=== PATIENT | female | born 1930 | race Caucasian/White ===

== ENCOUNTER → 2017-01-23 | Outpatient (CLI) | payer MEDICARE ==
--- NOTE | 2017-01-24 09:28 | ECHOF ---
Referral Reason:R06.02 Shortness of breath MEASUREMENTS -------- HEIGHT: 170.2 cm WEIGHT: 49.9 kg BP: RVIDd: 2.2 cm (< 3.3) IVSd: 1.3 cm (0.6 - 1.1) LVIDd: 4.0 cm (3.9 - 5.3) LVPWd: 1.3 cm (0.6 - 1.1) EDV(Teich): 70 ml IVSs: 1.4 cm LVIDs: 3.6 cm LVPWs: 1.4 cm %IVS Thck: 4 % ESV(Teich): 53 ml EF(Teich): 24 % %FS: 11 % SV(Teich): 17 ml LALs A4C: 5.3 cm LAAs A4C: 20.0 cm LAESV A-L A4C: 64 ml LAESV MOD A4C: 57 ml LALs A2C: 6.1 cm LAAs A2C: 18.7 cm LAESV A-L A2C: 48 ml LAESV MOD A2C: 46 ml LAESV(A-L): 59 ml LAESV Index (A-L): 37.85 ml/m Ao Diam: 3.0 cm (2.0 - 3.7) AV Cusp: 1.6 cm (1.5 - 2.6) LA Diam: 4.2 cm (2.7 - 3.8) MV EXCURSION: 18.330 mm (> 18.000) MV EF SLOPE: 142 mm/s (70 - 150) EPSS: 1.0 cm MV E Daryn: 0.66 m/s MV DecT: 203 ms MV Dec [place]: 3.3 m/s MV A Daryn: 0.29 m/s MV E/A Ratio: 2.27 MV PHT: 59 ms E/E': 3.18 E': 0.21 m/s AV Vmax: 1.18 m/s AV maxP.61 mmHg TR Vmax: 2.24 m/s TR maxP.07 mmHg RAP: 15.00 mmHg RVSP: 35.07 mmHg FINDINGS -------- Resting tachycardia (HR>100bpm). This was a technically adequate study. There is mild concentric left ventricular hypertrophy. Overall left ventricular systolic function is moderately impaired with, an EF between 35 - 40 %. The right ventricle is normal in size and function. LA is moderately dilated 34-39 ml/m2 RA appears enlarged. The aortic valve is trileaflet and appears structurally normal. Trace amount of aortic regurgitation. There is no evidence of aortic stenosis. The mitral valve leaflets are mildly thickened. Mild mitral annular calcification present. There is trace mitral regurgitation. Trace tricuspid regurgitation present. There is borderline pulmonary artery hypertension. The right ventricular systolic pressure, as measured by Doppler, is 35.07mmHg. The pulmonic valve was not well visualized. The aortic root size is normal. The inferior vena cava is dilated with poor inspiratory collapse which is consistent with estimated right atrial pressure of 20 mmHg. There is a moderate pericardial effusion located near the left ventricle. CONCLUSIONS -------- 1. Resting tachycardia (HR>100bpm). 2. Mild mitral annular calcification present. 3. There is trace mitral regurgitation. 4. Trace tricuspid regurgitation present. 5. There is borderline pulmonary artery hypertension. 6. The right ventricular systolic pressure, as measured by Doppler, is 35.07mmHg. 7. The pulmonic valve was not well visualized. 8. The aortic root size is normal. 9. The inferior vena cava is dilated with poor inspiratory collapse which is consistent with estimated right atrial pressure of 20 mmHg. 10. There is a moderate pericardial effusion located near the left ventricle. 11. This was a technically adequate study. 12. There is mild concentric left ventricular hypertrophy. 13. Overall left ventricular systolic function is moderately impaired with, an EF between 35 - 40 %. EF may be underestimated due to tachycardic rhythm. 14. LA is moderately dilated 34-39 ml/m2 15. RA appears enlarged. 16. The aortic valve is trileaflet and appears structurally normal. 17. Trace amount of aortic regurgitation. 18. The mitral valve leaflets are mildly thickened. WIRE COILER MACHINE OPERATOR: Dontrell Finney RDCS
== END | disposition home or self-care (01) ==
LOC: RADECHMAIN 14:56
PROVIDERS: ATTEND Family Medicine
DX: I05.9 Rheumatic mitral valve disease, unspecified (principal); I31.3 Pericardial effusion (noninflammatory); R03.0 Elevated blood-pressure reading, without diagnosis of hypertension
CPT/HCPCS: 93306

== ENCOUNTER → 2017-05-14 | Outpatient (CLI) | payer MEDICARE ==
[2017-05-14 11:58] LABS: Digoxin 0.5 ng/mL; Potassium 5.2 mmol/L (3.5-5.1)
== END | disposition home or self-care (01) ==
LOC: LABWHC1 11:09
PROVIDERS: ATTEND Internal Medicine Cardiovascular Disease
DX: I50.9 Heart failure, unspecified (principal)
CPT/HCPCS: 36415; 80048; 80162

== ENCOUNTER → 2017-12-18 | Outpatient (CLI) | payer MEDICARE ==
[2017-12-18 10:54] LABS: Prothrombin Time 18.4 sec (9.0-12.0)
== END | disposition home or self-care (01) ==
LOC: LABWHC1 10:21
PROVIDERS: ATTEND Family Medicine
DX: I48.91 Unspecified atrial fibrillation (principal); H53.50 Unspecified color vision deficiencies; R09.89 Other specified symptoms and signs involving the circulatory and respiratory systems
CPT/HCPCS: 36415; 80162; 85610

== ENCOUNTER → 2018-04-22 | Outpatient (CLI) | payer MEDICARE ==
--- NOTE | 2018-04-22 13:47 | CT ---
EXAMINATION TYPE: CT lumbar spine wo con DATE OF EXAM: 04/22/2018 12:36 PM COMPARISON: Bone scan dated 04/08/2018 HISTORY: Low back pain. CT DLP: 950.9 mGycm Automated exposure control for dose reduction was used. TECHNIQUE: Unenhanced CT of the lumbar spine was performed. Bone and soft tissue window settings are submitted as well as coronal and sagittal reconstructions. FINDINGS: There is a rudimentary disc at S1-S2. Compression deformities are seen of the L1 and L3 kiran tebral bodies. Given the uptake on the nuclear medicine bone scan of 04/08/2018 subacute fracture trish pected. A compression deformity of the L1 vertebral body is approximately 50% vertebral body height l oss with 5 mm of retropulsion of the superior endplate into the spinal canal. The compression deformi ty of the L3 vertebral body is also approximately 50% with 3 mm retropulsion of both the superior and inferior endplates into the spinal canal. Remaining lumbar vertebral bodies maintain normal vertebra l body heights and alignment. There is a very mild levoscoliotic curvature of the lumbar spine that m ay be partially positional. Reticular nodular right basilar airspace disease is seen with more focal component along the medial r ight lower lobe that could be fully evaluated with chest CT. Additionally trace left pleural effusion is seen. Cardiomegaly is partially visualized. There is cardiomegaly and a trace pleural effusion al so seen. Extensive atherosclerosis of the abdominal aorta and its branches are noted. Punctate 1 to 2 mm right renal calculi are identified, 2 in number. Left cortical renal atrophy is present. T12-L1: Retropulsion of the superior endplate creates mild spinal canal stenosis. There is also a bro ad-based disc bulge without neural foraminal narrowing. L1-L2: Broad-based disc bulge and facet arthropathy are seen without significant neural foraminal tim rowing or spinal canal stenosis. L2-L3: There is a broad-based disc bulge and minimal retropulsion of the compression deformity of L3 resulting in mild bilateral neural foraminal narrowing and mild spinal canal stenosis. L3-L4: There is mild spinal canal stenosis due to retropulsion of the inferior endplate of L3. Broad- based disc bulges also seen creating mild bilateral neural foraminal narrowing. Facet arthropathy and ligamentum flavum buckling contributing these findings. L4-L5: There is a broad-based disc bulge and ligamentum flavum buckling creating mild bilateral neura l foraminal narrowing, right greater than left, and mild spinal canal stenosis. L5-S1: There is ligamentum flavum buckling and a broad-based disc bulge minimally narrowing the ventr al subarachnoid space without significant spinal canal stenosis. Minimal bilateral neural foraminal n arrowing are also seen. Atrophy and subcutaneous edema are seen of the paraspinal muscles and subcutaneous tissues overlying the paraspinal muscles. IMPRESSION: 1. APPROXIMATELY 50% COMPRESSION DEFORMITY OF THE L1 VERTEBRAL BODY FAVORED TO BE SUBACUTE GIVEN THE RECENT BONE SCAN FINDINGS OF 04/08/2018. 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 SIMILAR FINDINGS ARE SEEN OF THE L3 VERTEBRAL BODY WITH RETROPULSION AL SO RESULTING IN MILD SPINAL CANAL STENOSIS AT L2-L3 AND L3-L4. 2. MULTILEVEL DEGENERATIVE DISC DISEASE RESULTING IN VARIABLE DEGREES OF NEURAL FORAMINAL NARROWING A S DESCRIBED ABOVE. 3. RIGHT BASILAR AIRSPACE DISEASE THAT GIVEN ITS NODULAR OPACITY AND CONFLUENT ALONG THE MEDIAL RIGHT LOWER LOBE SHOULD BE FURTHER EVALUATED WITH CHEST CT. 4. NONOBSTRUCTING PUNCTATE RIGHT RENAL CALCULI.
--- NOTE | 2018-04-22 13:50 | CT ---
EXAMINATION TYPE: CT pelvis wo con DATE OF EXAM: 04/22/2018 COMPARISON: None HISTORY: low back pain CT DLP: 950.9 mGycm Automated exposure control for dose reduction was used. FINDINGS: Liver appears prominent in size. There is degenerative change lower lumbar spine. 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 Facet arthropathy. There is hyperdensity involving the right kidney suggestive calculus. Kidneys are partially included and 17 pelvis. Arthropathy of the hips noted. Chronic appearing pubic rami deformity seen. Findings suggestive of re mote trauma. No acute fracture. There is retained fecal debris throughout the visualized colon. Atherosclerotic change aorta suspect a small ovarian follicle measuring 1 cm uterus is somewhat atrophic. Mild thickening of the bladder wall correlate for mild chronic cystitis. IMPRESSION: NO ACUTE FRACTURE. ARTHROPATHY OF THE HIPS AND EVIDENCE OF REMOTE TRAUMA INVOLVING THE PUBIC RAMI. HYPERDENSITY INVOLVING THE RIGHT KIDNEY APPEARS PUNCTATE MAY REPRESENT A TINY NONOBSTRUCTING STONE. Cannot exclude a small right ovarian follicle which could be correlated with ultrasound as clinically warranted.
== END | disposition home or self-care (01) ==
LOC: RADCTMAIN 09:54
PROVIDERS: ATTEND Family Medicine
DX: M48.061 Spinal stenosis, lumbar region without neurogenic claudication (principal); M99.73 Connective tissue and disc stenosis of intervertebral foramina of lumbar region; M51.36 Other intervertebral disc degeneration, lumbar region; M43.8X6 Other specified deforming dorsopathies, lumbar region; M12.852 Other specific arthropathies, not elsewhere classified, left hip; M12.851 Other specific arthropathies, not elsewhere classified, right hip; N28.89 Other specified disorders of kidney and ureter; Z88.0 Allergy status to penicillin; Z88.8 Allergy status to other drugs, medicaments and biological substances
CPT/HCPCS: 72131; 72192; 82565; 84520

== ENCOUNTER → 2018-05-13 | Outpatient (CLI) | payer MEDICARE ==
--- NOTE | 2018-05-13 12:10 | BD ---
EXAMINATION TYPE: Axial Bone Density DATE OF EXAM: 05/13/2018 CLINICAL HISTORY: Height: 64 inches Weight: 98 pounds FRAX RISK QUESTIONS: Alcohol (3 or more units per day): no Family History (Parent hip fracture): yes, mother Glucocorticoids (More than 3mos): no (Ex: prednisone, prednisolone, methylprednisolone, dexamethasone, and hydrocortisone). History of Fracture in Adulthood: yes, pelvis Secondary Osteoporosis: 1. Type 1 Diabetes: no 2. Hyperthyroidism: no 3. Menopause before 45: no 4. Malnutrition: unsure 5. Chronic liver disease: no Rheumatoid Arthritis: no Current Tobacco Use: no RISK FACTORS HISTORY OF: Family History of Osteoporosis: possibly mother Active: somewhat Diet low in dairy products/other sources of calcium: several servings a week Postmenopausal woman: yes Take estrogen and/or progesterone medications: no Lost more than 2 inches in height since high school: yes Frequent falls: no Poor Health: no Hyperparathyroidism: no Adrenal Insufficiency: unsure MEDICATIONS: Osteoporosis Medications: unsure Additional Medications: calcium , heart meds, blood pressure meds Additional History: L-1 fx...see 04/22/2018 CT of Lumbar report; A-Fib, congestive heart failure EXAM MEASUREMENTS: Bone mineral densitometry was performed using the [employer] System. Bone mineral density NOT measured about the Lumbar spine due to recent L-1 fracture Bone mineral density about the R hip (g/cm2): 0.512 Bone mineral density about the L hip (g/cm2): 0.542 T Score values are as follows: -----R Neck: -3.8 -----L Neck: -3.6 -----R Total: -4.3 -----L Total: -4.4 Bone mineral density has: Decreased -14.8% since study of: 02/11/2013 Bone mineral density about the L Wrist (g/cm2): 0.283 T Score values are as follows: -----Dist. R+U: -6.7 -----Prox. R+U: -6.0 -----Radius total: -6.5 Bone mineral density previously not done on wrist/forearm IMPRESSION: Osteoporosis NOTE: T-SCORE=SD OF THE YOUNG ADULT MEAN.
== END | disposition home or self-care (01) ==
LOC: RADBDWWP 09:23
PROVIDERS: ATTEND Family Medicine
DX: M48.56XA Collapsed vertebra, not elsewhere classified, lumbar region, initial encounter for fracture (principal); Z78.0 Asymptomatic menopausal state
CPT/HCPCS: 77080

== ENCOUNTER → 2018-06-15 | Outpatient (CLI) | payer MEDICARE ==
[~2018-06-15] MED LIST: DENOSUMAB 60 MG/ML 1 ML SYRINGE SQ ONE
[2018-06-15 14:18] VITALS: RESP 20
[2018-06-15 14:20] VITALS: BP 102/69; PULSE 85; TEMP 97.5
== END | disposition home or self-care (01) ==
LOC: PROCWHC3 13:48
PROVIDERS: ATTEND Family Medicine
DX: M81.0 Age-related osteoporosis without current pathological fracture (principal)
CPT/HCPCS: 96372; J0897